=== PATIENT | female | born 1950 | race African-American/Black ===

== ENCOUNTER 2019-02-03 18:16 | Emergency (ER) | payer OTHER, MEDICARE ==
[~2019-02-03] VITALS: Ht 170.2 cm; Wt 91.6 kg
[~2019-02-03 18:16] MED LIST: NORVASC; VIT D; [UNRECOGNIZED DRUG - OTHER]
[2019-02-03 18:30] VITALS: BP_SYST 158
--- NOTE | 2019-02-03 18:33 | NUR ---
Placed in room 03 . Placed on hospital monitor, blood pressure machine and pulse oximeter. To gown for exam. Side rails up.
--- NOTE | 2019-02-03 18:38 | NUR ---
ER Dr. Kelly at bedside examining patient.
--- NOTE | 2019-02-03 18:40 | NUR ---
Patient came into ED because she's been feeling some generalized weakness and minor chest tighness, for a few days. Patient stated that she starts to itch after eating. When talking to patient patient began to cry and talk about having to ask her daughter to move out of her home, and health problems that her is having. Patient says that she is under a lot of stress. Patient is A&Ox4.
--- NOTE | 2019-02-03 18:48 | NUR ---
Patient's BS was 70. [employer] crackers were given and eaten by patient.
--- NOTE | 2019-02-03 19:06 | NUR ---
Patient's bp was 209/98. Dr. Kelly aware, no treatment ordered.
--- NOTE | 2019-02-03 19:09 | NUR ---
Patient endorsed to night RN.
--- NOTE | 2019-02-03 19:30 | NUR ---
Pt denies c/o C/P or SOB. No needs verbalized at this time. B/P improved to 194/70. Will reassess prior to discharge.
[2019-02-03 20:15] VITALS: BP_SYST 184
--- NOTE | 2019-02-03 20:15 | NUR ---
Patient given written and verbal discharge instructions and verbalizes understanding. ER MD discussed with patient the results and treatment provided. Patient in stable condition. ID arm band removed. No Rx given. Patient educated on pain management and to follow up with PMD. Pain Scale 0/10. Opportunity for questions provided and answered. Medication side effect fact sheet provided.
== END 2019-02-03 20:15 | disposition home or self-care (01) ==
LOC: SED 18:16
DX: F41.9 Anxiety disorder, unspecified (principal); I10 Essential (primary) hypertension; Z79.899 Other long term (current) drug therapy
CPT/HCPCS: 82962; 99281; 99282

== ENCOUNTER 2019-03-06 10:30 | Outpatient (CLI) | payer OTHER, MEDICARE ==
[2019-03-06 11:31] LABS: BASOPHILS # (AUTO) 0.1 K/uL (0.0-0.2); BASOPHILS % (AUTO) 1.8 % (0.0-2.0); EOSINOPHILS # (AUTO) 0.1 K/uL (0.0-0.4); EOSINOPHILS % (AUTO) 1.7 % (0.0-4.0); HEMATOCRIT 43.2 % (36-48); HEMOGLOBIN 14.3 g/dL (12.0-16.0); LYMPHOCYTES # (AUTO) 1.3 K/uL (1.0-5.5); LYMPHOCYTES % (AUTO) 28.8 % (20.5-51.5); MEAN CORPUSCULAR HEMOGLOBIN 30 pg (27-31); MEAN CORPUSCULAR HGB CONC 33 % (32-36); MEAN CORPUSCULAR VOLUME 91 fL (79.0-98.0); MONOCYTES # (AUTO) 0.3 K/uL (0.0-1.0); MONOCYTES % (AUTO) 7.3 % (1.7-9.3); NEUTROPHILS # (AUTO) 2.8 K/uL (1.8-7.7); NEUTROPHILS % (AUTO) 60.4 % (40.0-70.0); PLATELET COUNT (AUTO) 249 K/uL (130-430); RED BLOOD CELL COUNT(AUTO) 4.73 MIL/uL (4.2-6.2); RED CELL DISTRIBUTION WIDTH 15.4 % (9.0-15.0); WHITE BLOOD COUNT (AUTO) 4.7 K/uL (4.8-10.8)
[2019-03-06 12:22] LABS: ALBUMIN 4.1 g/dL (3.4-4.8); BILIRUBIN,DIRECT 0.2 mg/dL (0.0-0.3); CALCIUM 9.8 mg/dL (8.4-11.0); CREATININE 1.4 mg/dL (0.55-1.30); POTASSIUM 4.2 mmol/L (3.5-5.1); THYROID STIMULATING HORMONE 1.1 uIu/mL (0.34-4.82); TOTAL BILIRUBIN 0.5 mg/dL (0.0-1.0)
== END 2019-03-06 21:13 | disposition home or self-care (01) ==
LOC: SLB 10:30
DX: I13.10 Hypertensive heart and chronic kidney disease without heart failure, with stage 1 through stage 4 chronic kidney disease, or unspecified chronic kidney disease (principal); N19 Unspecified kidney failure; E55.9 Vitamin D deficiency, unspecified; E66.9 Obesity, unspecified; K63.5 Polyp of colon; E78.5 Hyperlipidemia, unspecified; F41.9 Anxiety disorder, unspecified; E04.1 Nontoxic single thyroid nodule; I65.29 Occlusion and stenosis of unspecified carotid artery; Z79.899 Other long term (current) drug therapy
CPT/HCPCS: 36415; 80048; 80061; 80076; 82306; 84443-TC; 85025; 87086

== ENCOUNTER 2019-08-23 09:17 | Outpatient (CLI) | payer OTHER, MEDICARE | END 2019-08-23 19:07 | disposition home or self-care (01) | LOC: SUS 09:17 | DX: E04.9 Nontoxic goiter, unspecified (principal); E04.1 Nontoxic single thyroid nodule | CPT/HCPCS: 76536-TC ==

== ENCOUNTER 2020-05-07 10:40 | Outpatient (CLI) | payer OTHER, MEDICARE ==
[2020-05-07 11:36] LABS: BASOPHILS % (AUTO) 0.7 % (0.0-2.0); EOSINOPHILS % (AUTO) 0.1 % (0.0-4.0); HEMOGLOBIN 13.4 g/dL (12.0-16.0); LYMPHOCYTES # (AUTO) 1.5 K/uL (1.0-5.5); LYMPHOCYTES % (AUTO) 25.5 % (20.5-51.5); MEAN CORPUSCULAR HEMOGLOBIN 31 pg (27-31); MEAN CORPUSCULAR HGB CONC 34 % (32-36); MEAN CORPUSCULAR VOLUME 91 fL (79.0-98.0); MONOCYTES # (AUTO) 0.3 K/uL (0.0-1.0); MONOCYTES % (AUTO) 5.9 % (1.7-9.3); NEUTROPHILS # (AUTO) 3.9 K/uL (1.8-7.7); NEUTROPHILS % (AUTO) 67.8 % (40.0-70.0); PLATELET COUNT (AUTO) 235 K/uL (130-430); RED BLOOD CELL COUNT(AUTO) 4.39 MIL/uL (4.2-6.2); RED CELL DISTRIBUTION WIDTH 15.5 % (9.0-15.0); WHITE BLOOD COUNT (AUTO) 5.7 K/uL (4.8-10.8)
[2020-05-07 11:58] LABS: BILIRUBIN,URINE 1+ (NEGATIVE); BLOOD, URINE NEGATIVE (NEGATIVE); CLARITY/URINE CLEAR (CLEAR); COLOR,URINE YELLOW (YELLOW); GLUCOSE,URINE NEGATIVE (NEGATIVE); KETONES,URINE TRACE (NEGATIVE); LEUKOCYTE ESTERASE ,URINE NEGATIVE (NEGATIVE); NITRITE, URINE NEGATIVE (NEGATIVE); PH,URINE 5.5 (5.0-8.0); PROTEIN URINE NEGATIVE (NEGATIVE); UROBILINOGEN,URINE 0.2 (0.2-1.0)
[2020-05-07 12:01] LABS: ALBUMIN 4.4 g/dL (3.4-4.8); CREATININE 2.14 mg/dL (0.55-1.30); FREE T4 (FREE THYROXINE) 1.2 ng/dL (0.6-1.6); POTASSIUM 5.1 mmol/L (3.5-5.1); THYROID STIMULATING HORMONE 1.46 uIu/mL (0.34-4.82); TOTAL BILIRUBIN 0.8 mg/dL (0.0-1.0)
== END 2020-05-07 20:44 | disposition home or self-care (01) ==
LOC: SLB 10:40
DX: E78.5 Hyperlipidemia, unspecified (principal); I10 Essential (primary) hypertension; K21.9 Gastro-esophageal reflux disease without esophagitis; R79.89 Other specified abnormal findings of blood chemistry; R30.0 Dysuria; R73.09 Other abnormal glucose
CPT/HCPCS: 36415; 80053; 80061; 81003; 83036; 84439; 84443-TC; 85025; 87086